=== PATIENT | male | born 1995 | race Caucasian/White ===

== ENCOUNTER 2018-04-28 13:40 | Emergency (ER) | payer BC ==
--- NOTE | 2018-04-28 13:41 | ER Report ---
History and Physical Time Seen By MD: 13:41 HPI/ROS CHIEF COMPLAINT: Insect bite HISTORY OF PRESENT ILLNESS: Patient presents with concerns of infected bug bite. Patient states he received an insect sting on Wednesday, April 25. He was doing well until today when he noticed increased pain and swelling along with extension of erythema extending from the bug bite. Last tetanus is less than 5 years ago. He denies any fevers or chills. Denies any pain with range of motion at the elbow Allergies: Coded Allergies: No Known Drug Allergies (Unverified , 04/28/18) Past Medical/Surgical History Noncontributory Constitutional Vital Sign - Last 24 Hours 04/28/18 04/28/18 13:45 14:06 Pulse 79 68 Resp 20 16 B/P (MAP) 120/73 127/71 (89) Pulse Ox 97 95 O2 Delivery Room Air Room Air Physical Exam General appearance: Alert no distress. Skin : Patient has an area of erythema approximate 4 cm in diameter on the right elbow. There is no fluctuant area. Range of Motion to the elbow is normal. Medical Decision Making ED Course/Re-evaluation ED Course Plan at this time I will be to start the patient on oral Keflex 4 times a day for 5 days. We will also use of marking pen to delineate the area of cellulitis patient was instructed to return if redness worsens Decision to Disposition Date: Apr 28, 2018 Decision to Disposition Time: 14:01 Depart Departure Latest Vital Signs Vital Signs Date Time Temp Pulse Resp B/P (MAP) Pulse Ox O2 Delivery O2 Flow Rate FiO2 04/28/18 14:06 68 16 127/71 (89) 95 Room Air Impression: Primary Impression: Bug bite with infection Condition: Improved Disposition: HOME OR SELF-CARE Patient Instructions: Cellulitis (ED) Problem Qualifiers Primary Impression: Bug bite with infection Encounter type: initial encounter Qualified Codes: W57.XXXA - Bitten or stung by nonvenomous insect and other nonvenomous arthropods, initial encounter FRANKY GARCIA MD Apr 28, 2018 13:41
[2018-04-28] MEDS ORDERED: CEPHALEXIN MONO 500 MG CAP PO ONE (13:50)
[2018-04-28 14:06] VITALS: BP 127/71
== END 2018-04-28 14:07 | disposition home or self-care (01) ==
LOC: ER 14:01
DX: S50.361A Insect bite (nonvenomous) of right elbow, initial encounter (principal); W57.XXXA Bitten or stung by nonvenomous insect and other nonvenomous arthropods, initial encounter
CPT/HCPCS: 99283